=== PATIENT | male | born 1960 | race Caucasian/White ===

== ENCOUNTER → 2020-12-28 | Day surgery (SDC) | payer OTHER ==
[~2020-12-28] VITALS: Ht 170.2 cm; Wt 88.0 kg
[~2020-12-28] MED LIST: ASPIRIN EC81 MG PO; CLOBETASOL EMOL15 GM TOP; CYCLOBENZAPRINE10 MG PO; LOVAZA1 GM PO; METFORMIN HCL500 MG PO; PROLENSA3 ML OS; SODIUM CHLORIDE EYEBOTH; SYSTANE HYDRATI10 ML EYEBOTH; TIMOPTIC5 M1 EYEBOTH; ZOCOR20 MG PO; ZYRTEC10 MG PO
== END | disposition home or self-care (01) ==
LOC: FAS 08:31
DX: K29.50 Unspecified chronic gastritis without bleeding (principal); Z12.11 Encounter for screening for malignant neoplasm of colon; M25.561 Pain in right knee; G89.29 Other chronic pain; E11.9 Type 2 diabetes mellitus without complications; E78.00 Pure hypercholesterolemia, unspecified; Z88.1 Allergy status to other antibiotic agents; Z79.84 Long term (current) use of oral hypoglycemic drugs; R13.10 Dysphagia, unspecified; K31.7 Polyp of stomach and duodenum; K29.70 Gastritis, unspecified, without bleeding
CPT/HCPCS: 43239; G0121; J2250; J2704; J7120